=== PATIENT | female | born 1950 | race Caucasian/White ===

== ENCOUNTER 2019-06-19 14:13 | Outpatient (CLI) | payer MEDICARE ==
[~2019-06-19 14:13] MED LIST: ACET-1600 PO; BIOT1000 PO; CHOL100012 PO; CLON-364 PO; Fiber Well PO; GLUC1TAB55 PO; IBUP-1902 PO; IBUP200T49 PO; LACT1CAP40 PO; LEVO100T5 PO; NAPR220C2 PO; OXYC5TAB3 PO; SERT25TA3 PO; mega red PO
[2019-06-19 15:37] LABS: ALANINE AMINOTRANSFERASE 35 U/L (12-78); ALBUMIN 3.7 g/dL (3.4-5.0); ANION GAP 5 mmol/L (5-15); CALCIUM 9.5 mg/dL (8.5-10.1); CHLORIDE 108 mmol/L (98-107); CREATININE 1.05 mg/dL (0.55-1.02)
[2019-06-19 15:39] LABS: ALKALINE PHOSPHATASE 99 U/L (45-117); BILIRUBIN,TOTAL 0.3 mg/dL (0.2-1.0); TOTAL PROTEIN 7.6 g/dL (6.4-8.2)
[2019-06-19] MEDS ORDERED: ACET650S21 PO (15:54)
[2019-06-19] MEDS ORDERED: OMEG1CAP23 PO (15:54)
[2019-06-19] MEDS ORDERED: VIT1CAPS11 PO (15:54)
[2019-06-19] MEDS ORDERED: PRAV10TA2 PO (15:54)
[2019-06-19] MEDS ORDERED: BIOT25005 PO (15:54)
[2019-06-19] MEDS ORDERED: LEVO137T3 PO (15:54)
[2019-06-19] MEDS ORDERED: METF500T17 PO (15:55)
== END 2019-06-19 23:59 | disposition home or self-care (01) ==
LOC: STAR 14:13
PROVIDERS: ATTEND Orthopaedic Surgery
DX: Z01.818 Encounter for other preprocedural examination (principal); M19.012 Primary osteoarthritis, left shoulder
CPT/HCPCS: 36415; 80053; 87081; 93005